=== PATIENT | female | born 1945 | race Caucasian/White ===

== ENCOUNTER → 2018-07-04 | Outpatient (CLI) | payer MEDICARE ==
[~2018-07-04] MED LIST: ASPI-555 PO; CALC-190 PO; FLUO20CA30 PO; LEVO250T59 PO; METO-408 PO; SIMV40TA5 PO
== END ==
LOC: RAH 09:01
PROVIDERS: ATTEND Internal Medicine
DX: Z76.89 Persons encountering health services in other specified circumstances (principal); R92.2 Inconclusive mammogram; Z85.3 Personal history of malignant neoplasm of breast; Z85.048 Personal history of other malignant neoplasm of rectum, rectosigmoid junction, and anus
CPT/HCPCS: 77066

== ENCOUNTER 2018-12-29 06:26 | Day surgery (SDC) | payer MEDICARE ==
[2018-12-28 12:57] LABS: BASOPHILS % (AUTO) 0.4 % (0.0-5.0); EOSINOPHILS % (AUTO) 3.8 % (0.0-8.0); HEMATOCRIT 32.5 % (36-48); LYMPHOCYTES % (AUTO) 23.1 % (21.0-51.0); MEAN CORPUSCULAR HEMOGLOBIN 32.9 pg (27.0-33.0); MEAN CORPUSCULAR HGB CONC 33.4 g/dL (32.0-36.0); MEAN CORPUSCULAR VOLUME 98.4 fL (79-99); MONOCYTES % (AUTO) 12.2 % (3.0-13.0); NEUTROPHILS % (AUTO) 60.5 % (40.0-77.0); PLATELET COUNT (AUTO) 238 K/uL (130-400)
[2018-12-28 12:58] VITALS: BP 172/79
[2018-12-28 13:03] LABS: CREATININE 1.3 mg/dL (0.5-1.5); POTASSIUM 4.4 mmol/L (3.5-5.1)
--- NOTE | 2018-12-28 13:35 | NUR ---
PT IS TAKING ANTIBIOTICS LEVAQUIN 500MG DAILY DUE TO A STAPH INFECTION FOR THE LAST THREE YEARS, PER THE PATIENT A DOCTOR IN [place] PRESCRIBED THE MEDICATION AND ADVISE HER TO TAKE DUE TO RODS IN HER BACK. 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
[2018-12-29] VITALS (19 sets, daily range): BP systolic 124–154; BP diastolic 49–77
[~2018-12-29] VITALS: Ht 154.9 cm; Wt 62.2 kg
[2018-12-29] MEDS: CEFAZOLIN SODIUM 1 GM VIAL IVP SCH ×2 (05:00→08:40)
[2018-12-29] MEDS ORDERED: LACTATED RINGERS 1000ML 1,000 ML IV ONE (07:34)
--- NOTE | 2018-12-29 08:09 | NUR ---
Corneal transplant pt had a corneal transplant in Sep .pt has a contact in left eye. pt notified Dr Gottlieb her eye surgeon ,recommended pt leave contact in place during procedure Addendum: 12/29/18 at 0815 by YAN MORFIN RN RN Amended: Links added.
[2018-12-29] MEDS ORDERED: OLME20TA10 PO (08:17)
[2018-12-29] MEDS ORDERED: FENTANYL CITRATE PF 50 MCG/1 ML 2ML VIAL ONE (08:40)
[2018-12-29] MEDS ORDERED: DEXAMETHASONE SOD PHOSPHATE 10MG/ML 1ML VIAL ONE (08:40)
[2018-12-29] MEDS ORDERED: ONDANSETRON HCL 4 MG/2 ML VIAL ONE (08:40)
[2018-12-29] MEDS ORDERED: PROPOFOL 10 MG/ML 20ML VIAL IV ONE (08:40)
[2018-12-29] MEDS ORDERED: MIDAZOLAM HCL 1 MG/ML 2ML VIAL ONE (08:40)
[2018-12-29] MEDS ORDERED: LIDOCAINE PF 2% 5ML ABBOJECT ONE (08:40)
[2018-12-29] MEDS ORDERED: EPHEDRINE SULFATE 50 MG/ML AMPULE ONE (08:50)
[2018-12-29] MEDS ORDERED: LIDOCAINE HCL 1% 20 ML VIAL ONE (08:53)
[2018-12-29] MEDS ORDERED: BUPIVACAINE/PF 0.5% 30ML VIAL ONE (08:53)
[2018-12-29] MEDS ORDERED: CEFAZOLIN SODIUM 1 GM VIAL ONE (08:53)
[2018-12-29] MEDS ORDERED: TYL3 PO (09:30)
--- NOTE | 2018-12-29 10:50 | NUR ---
NEW PT RECEIVED PT FORM PACU, S/P LEFT CARPAL TUNNEL RELEASE, DRESSING TO LEFT ARM WRAP WITH NELLA WRAP NOTED. NEUROVASCULAR CHECKS WNL TO LEFT ARM, VS STABLE ON ARRIVAL. PT DENIED ANY PAIN OR DISCOMFORTS. ARM SLING PLACE TO LEFT ARM ORDERED BY MD. SPOUSE AT BEDSIDE.
--- NOTE | 2018-12-29 11:16 | NUR ---
DC DC INSTRUCTIONS GIVEN TO PT/ PT SPOUSE WITH RX, INSTRUCTED ON NEW MED REGIMEN AND POSSIBLE SIDE EFFECT ON NEW MED. INSTRUCTED TO F/U WITH DR. GILLIAM , TO KEEP DRESSING DRY AND INTACT, PIV REMOVED SITE ASYMPTOMATIC, PT STABLE .ARM SLING TO LEFT ARM ORDERED BY DR. GILLIAM. PHOTO COPY OF DR. GILLIAM ORDERS GIVEN.
--- NOTE | 2018-12-29 11:20 | NUR ---
DC PT DC HOME VIA WC, NO DISTRESS NOTED. ACCOMPANIED BY SPOUSE, PT STABLE
== END 2018-12-29 11:20 | disposition home or self-care (01) ==
LOC: DAH 06:26
PROVIDERS: ATTEND Orthopaedic Surgery
DX: G56.02 Carpal tunnel syndrome, left upper limb (principal); I11.9 Hypertensive heart disease without heart failure; E78.00 Pure hypercholesterolemia, unspecified; Z85.038 Personal history of other malignant neoplasm of large intestine; E03.9 Hypothyroidism, unspecified; Z79.899 Other long term (current) drug therapy; Z79.01 Long term (current) use of anticoagulants; Z98.890 Other specified postprocedural states; Z82.49 Family history of ischemic heart disease and other diseases of the circulatory system; F32.9 Major depressive disorder, single episode, unspecified; K21.9 Gastro-esophageal reflux disease without esophagitis; R56.9 Unspecified convulsions; G62.9 Polyneuropathy, unspecified; K29.70 Gastritis, unspecified, without bleeding
CPT/HCPCS: 36415; 64721; 80048; 85025; 93005; A4215; A4218; A4649; A4930; A6223; J0690 ×2; J1100; J2001; J2250; J2405; J2704; J3010; J3490 ×2; J7120 ×2